=== PATIENT | male | born 1955 | race Caucasian/White ===

== ENCOUNTER 2018-08-04 08:39 | Day surgery (SDC) | payer BC ==
[~2018-08-04] VITALS: Ht 175.3 cm; Wt 84.1 kg
[2018-08-04] MEDS ORDERED: LIDOcaine Viscous 15ml cup ONE (08:48)
[2018-08-04] MEDS ORDERED: fentaNYL/PF 50MCG/1 ML 2ML syringe ONE ×2 (08:48)
[2018-08-04] MEDS ORDERED: MIDAZolam 5mg/5ml vial ONE (08:48)
[2018-08-04] MEDS ORDERED: TRAZ-219 PO (08:58)
[2018-08-04] MEDS ORDERED: PARO30TA4 PO (08:58)
[2018-08-04 08:59] VITALS: BP 138/94
[2018-08-04] MEDS ORDERED: TURM500C4 (08:59)
[2018-08-04 10:00] VITALS: BP 126/78
[2018-08-04 10:10] VITALS: BP 122/73
[2018-08-04 10:20] VITALS: BP 127/68
[2018-08-04 10:30] VITALS: BP 123/77
== END 2018-08-04 11:00 | disposition home or self-care (01) ==
LOC: GI LAB 08:39
PROVIDERS: ATTEND Internal Medicine Gastroenterology
DX: Z12.11 Encounter for screening for malignant neoplasm of colon (principal); K62.6 Ulcer of anus and rectum; K44.9 Diaphragmatic hernia without obstruction or gangrene; K29.50 Unspecified chronic gastritis without bleeding; B96.81 Helicobacter pylori [H. pylori] as the cause of diseases classified elsewhere; K21.0 Gastro-esophageal reflux disease with esophagitis; K75.9 Inflammatory liver disease, unspecified; I10 Essential (primary) hypertension; F17.210 Nicotine dependence, cigarettes, uncomplicated; F32.9 Major depressive disorder, single episode, unspecified; Z86.2 Personal history of diseases of the blood and blood-forming organs and certain disorders involving the immune mechanism; Z72.89 Other problems related to lifestyle; Z85.9 Personal history of malignant neoplasm, unspecified; Z92.21 Personal history of antineoplastic chemotherapy; Z79.891 Long term (current) use of opiate analgesic; Z98.890 Other specified postprocedural states; Z79.899 Other long term (current) drug therapy; Z80.0 Family history of malignant neoplasm of digestive organs
CPT/HCPCS: 43239; 45378; 99152; 99153; J2250; J3010; J7030; A4620